=== PATIENT | male | born 1940 | race Caucasian/White ===

== ENCOUNTER 2018-11-17 16:00 | Emergency (ER) | payer MEDICARE ==
[~2018-11-17] VITALS: Ht 170.2 cm; Wt 76.2 kg
[2018-11-17] MEDS ORDERED: ASPI81TA26 PO (16:08)
[2018-11-17] MEDS ORDERED: VALS1TAB66 PO (16:08)
[2018-11-17] MEDS ORDERED: OMEP-218 PO (16:08)
[2018-11-17] MEDS ORDERED: PRAV80TA2 PO (16:38)
[2018-11-17 17:31] LABS: BASO # 0.1 10^3/uL (0.0-0.2); BASO % 0.7 % (0.0-1.0); EOS # 0.1 10^3/uL (0.0-0.50); EOS % 1.1 % (0.0-3.0); HEMATOCRIT 46.8 % (42.0-52.0); HEMOGLOBIN 15.2 g/dl (13.5-17.5); LYMPH # 1.9 10^3/uL (1.5-4.5); LYMPH % 22.3 % (24.0-44.0); MEAN CORPUSCULAR HEMOGLOBIN 31.3 pg (27.0-33.0); MEAN CORPUSCULAR HGB CONC 32.5 g/dl (32.0-36.5); MEAN CORPUSCULAR VOLUME 96.5 fl (80.0-96.0); MONO % 11.2 % (0.0-5.0); NEUTROPHILS # 5.5 10^3/uL (1.8-7.7); NEUTROPHILS % 64.5 % (36.0-66.0); PLATELET COUNT, AUTOMATED 174 10^3/uL (150-450); RED BLOOD COUNT 4.85 10^6/uL (4.30-6.10); WHITE BLOOD COUNT 8.5 10^3/uL (4.0-10.0)
[2018-11-17 17:42] LABS: BLOOD UREA NITROGEN 12 MG/DL (7-18); CALCIUM LEVEL 9.3 MG/DL (8.8-10.2); CARBON DIOXIDE LEVEL 32 MEQ/L (21-32); CHLORIDE LEVEL 106 MEQ/L (98-107); CK-MB VALUE MASS 5.8 NG/ML (<3.6); CPK CREATINE PHOSPHOKINASE 343 U/L (39-308); CREATININE FOR GFR 1.17 MG/DL (0.70-1.30); FREE T4 0.98 NG/DL (0.76-1.46); GLOMERULAR FILTRATION RATE > 60.0 (>35); GLUCOSE, FASTING 93 MG/DL (70-100); MAGNESIUM LEVEL 2.2 MG/DL (1.8-2.4); MB/CK RELATIVE INDEX 1.69 (< OR =4); POTASSIUM SERUM 4.7 MEQ/L (3.5-5.1); SODIUM LEVEL 143 MEQ/L (136-145); TROPONIN I < 0.02 NG/ML (< 0.10)
--- NOTE | 2018-11-17 17:44 | REP ---
CT Head without contrast HISTORY: Syncope COMPARISON: None Areas of decreased attenuation are present in the periventricular and subcortical white matter. This represents small-vessel ischemic disease. There is no intraparenchymal hemorrhage, acute infarct, mass or midline shift. The ventricular system and cortical sulci are dilated consistent with moderate volume loss. There is no extra cerebral collection. There is no fracture. The visualized sinuses are clear. IMPRESSION: 1. Small vessel ischemic disease. 2. Moderate volume loss. Electronically Signed by Jose Zhang MD 11/17/2018 05:36 P
[2018-11-17 18:24] VITALS: BP 160/87
--- NOTE | 2018-11-17 18:38 | ECGEPIP ---
[facility] - ED Test Date: 2018-11-17 Pat Name: NIK TURNER Department: Room: - Gender: Male Human Resources Associate: BATOOL : 1940 Requested By: LEENA ULRICH PA-C Order Number: [id number] Reading MD: Adalgisa Flaherty Measurements Intervals [place] Rate: 65 P: 140 WA: 130 QRS: 25 QRSD: 86 T: 60 QT: 363 QTc: 379 Interpretive Statements ELECTRONIC ATRIAL PACEMAKER ABNORMAL RHYTHM ECG NO PRIOR FOR COMPARISON Electronically Signed on 11-17-2018 18:38:20 EDT by Adalgisa Flaherty
== END 2018-11-17 18:26 | disposition home or self-care (01) ==
LOC: M ED 16:00
DX: S00.03XA Contusion of scalp, initial encounter (principal); R53.1 Weakness; W19.XXXA Unspecified fall, initial encounter; Y92.099 Unspecified place in other non-institutional residence as the place of occurrence of the external cause; Y93.9 Activity, unspecified; Y99.9 Unspecified external cause status; Z95.0 Presence of cardiac pacemaker; R94.31 Abnormal electrocardiogram [ECG] [EKG]; I10 Essential (primary) hypertension; E78.5 Hyperlipidemia, unspecified; K21.9 Gastro-esophageal reflux disease without esophagitis; Z79.82 Long term (current) use of aspirin; Z79.899 Other long term (current) drug therapy

== ENCOUNTER 2019-01-10 19:27 | Emergency (ER) | payer MEDICARE ==
[~2019-01-10] VITALS: Ht 170.2 cm; Wt 76.4 kg
[~2019-01-10 19:27] MED LIST: ASPI81TA26 PO; OMEP-218 PO; PRAV80TA2 PO; VALS1TAB66 PO
[2019-01-10 23:54] VITALS: BP 136/84
[2019-01-11] MEDS ORDERED: ADACEL/BOOSTRIX VACCINE (DIPHTH/PERTUSS/ACELL/TETANUS)0.5ML SYR (90715) IM ONE
--- NOTE | 2019-01-11 09:20 | REP ---
LEFT FINGERS, FOUR VIEWS: HISTORY: Injury. There is no acute fracture or dislocation. There is narrowing of the metacarpal phalangeal ,intermediate and distal interphalangeal joint spaces. A defect is present in the soft tissue overlying the distal phalange of the 3rd digit. IMPRESSION: There is no acute fracture or dislocation. Electronically Signed by Jose Zhang MD 01/11/2019 09:29 A
== END 2019-01-11 | disposition home or self-care (01) ==
LOC: M ED 19:27
DX: S68.123A Partial traumatic metacarpophalangeal amputation of left middle finger, initial encounter (principal); W31.2XXA Contact with powered woodworking and forming machines, initial encounter; Y92.099 Unspecified place in other non-institutional residence as the place of occurrence of the external cause; Y93.9 Activity, unspecified; Y99.9 Unspecified external cause status; I10 Essential (primary) hypertension; K21.9 Gastro-esophageal reflux disease without esophagitis; Z95.0 Presence of cardiac pacemaker; Z79.82 Long term (current) use of aspirin; Z79.899 Other long term (current) drug therapy